=== PATIENT | female | born 1980 | race Hispanic/Latino ===

== ENCOUNTER 2017-11-24 14:42 | Emergency (ER) | payer SELFPAY ==
[~2017-11-24 14:42] MED LIST: ACET1TAB12 PO; PREN-64 PO
[2017-11-24 15:54] LABS: BASOPHILS % (AUTO) 0.9 % (0.0-5.0); EOSINOPHILS % (AUTO) 1.2 % (0.0-8.0); HEMATOCRIT 39.5 % (36-48); LYMPHOCYTES % (AUTO) 31.1 % (21.0-51.0); MEAN CORPUSCULAR HEMOGLOBIN 27.8 pg (27.0-33.0); MEAN CORPUSCULAR HGB CONC 33.9 g/dL (32.0-36.0); MEAN CORPUSCULAR VOLUME 82.1 fL (79-99); MONOCYTES % (AUTO) 5.8 % (3.0-13.0); PLATELET COUNT (AUTO) 255 K/uL (130-400); RED BLOOD CELL COUNT(AUTO) 4.81 MIL/uL (4.00-5.50); RED CELL DISTRIBUTION WIDTH 14.1 % (11.0-15.5); WHITE BLOOD COUNT (AUTO) 8.7 K/uL (4.8-10.8)
[2017-11-24 16:01] LABS: APPEARANCE,URINE Clear (CLEAR); BILIRUBIN,URINE Negative (NEGATIVE); COLOR,URINE Yellow (YELLOW); GLUCOSE, URINE (UA) TRACE mg/dL (NEGATIVE); KETONES,URINE Negative (NEGATIVE); LEUKOCYTE ESTERASE ,URINE Negative (NEGATIVE); NITRATE,URINE Negative (NEGATIVE); OCCULT BLOOD,URINE Moderate (NEGATIVE); PROTEIN,URINE Negative (NEGATIVE)
[2017-11-24 16:02] LABS: CREATININE 0.6 mg/dL (0.5-1.5); POTASSIUM 3.9 mmol/L (3.5-5.1)
[2017-11-24 16:12] LABS: HCG,QUAL RESULT NEGATIVE (NEGATIVE)
[2017-11-24 16:19] LABS: BACTERIA,URINE Few /HPF (None Seen); WBC,URINE 0-1 /HPF (0-1)
[2017-11-24 16:20] LABS: SQUAMOUS EPITHELIAL CELL,UR 0-2 /LPF (0-2)
[2017-11-24 16:21] LABS: RAPID GROUP A STREP NEGATIVE (NEGATIVE)
[2017-11-24] MEDS ORDERED: KETOROLAC TROMETHAMINE 30MG/ML ONE (16:24)
[2017-11-24] MEDS ORDERED: ACETAMINOPHEN 325 MG TAB ONE (16:30)
[2017-11-24] MEDS ORDERED: SODIUM CHLORIDE 0.9% 1000ML 1,000 ML IV ONE (16:30)
== END 2017-11-24 17:21 | disposition home or self-care (01) ==
LOC: EDH 14:42
DX: J10.1 Influenza due to other identified influenza virus with other respiratory manifestations (principal); R51 Headache; E11.9 Type 2 diabetes mellitus without complications; I10 Essential (primary) hypertension
CPT/HCPCS: 36415; 80048; 81001; 81025; 85025; 87804 ×2; 87880; 96361; 96374; 99285; J1885; J7030

== ENCOUNTER 2018-04-02 20:21 | Emergency (ER) | payer OTHER ==
[2018-04-02 20:58] LABS: APPEARANCE,URINE Clear (CLEAR); BILIRUBIN,URINE Negative (NEGATIVE); COLOR,URINE Yellow (YELLOW); GLUCOSE, URINE (UA) >=1000 mg/dL (NEGATIVE); KETONES,URINE Negative (NEGATIVE); LEUKOCYTE ESTERASE ,URINE Negative (NEGATIVE); NITRATE,URINE Negative (NEGATIVE); OCCULT BLOOD,URINE Negative (NEGATIVE); PROTEIN,URINE Negative (NEGATIVE)
[2018-04-02 21:08] LABS: BACTERIA,URINE Few /HPF (None Seen); RBC,URINE None Seen /HPF (0-1); WBC,URINE None Seen /HPF (0-1)
[2018-04-02] MEDS ORDERED: DiphenhydrAMINE HCL 50 MG/ML VIAL ONE (21:17)
[2018-04-02] MEDS ORDERED: METOCLOPRAMIDE 10 MG/2 ML VIAL ONE (21:18)
[2018-04-02] MEDS ORDERED: ONDANSETRON HCL 4 MG/2 ML VIAL ONE (21:18)
[2018-04-02] MEDS ORDERED: KETOROLAC TROMETHAMINE 15MG/ML ONE (21:19)
[2018-04-02 21:21] LABS: BASOPHILS % (AUTO) 0.3 % (0.0-5.0); EOSINOPHILS % (AUTO) 2.1 % (0.0-8.0); HEMATOCRIT 40.9 % (36-48); LYMPHOCYTES % (AUTO) 27.8 % (21.0-51.0); MEAN CORPUSCULAR HEMOGLOBIN 28.7 pg (27.0-33.0); MEAN CORPUSCULAR HGB CONC 34.3 g/dL (32.0-36.0); MEAN CORPUSCULAR VOLUME 83.6 fL (79-99); NEUTROPHILS % (AUTO) 65.8 % (40.0-77.0); NUCLEATED RED BLOOD CELLS 0.2 % (0.0-0.19); PLATELET COUNT (AUTO) 276 K/uL (130-400); RED BLOOD CELL COUNT(AUTO) 4.89 MIL/uL (4.00-5.50); RED CELL DISTRIBUTION WIDTH 13.4 % (11.0-15.5); WHITE BLOOD COUNT (AUTO) 12.6 K/uL (4.8-10.8)
[2018-04-02 21:29] LABS: CREATININE 0.7 mg/dL (0.5-1.5); POTASSIUM 4.1 mmol/L (3.5-5.1)
[2018-04-02 21:34] LABS: ALBUMIN 3.2 g/dL (3.5-5.0); BILIRUBIN,TOTAL 0.4 mg/dL (0.2-1.0); TOTAL PROTEIN, SERUM 7.9 g/dL (6.0-8.3)
[2018-04-02] MEDS ORDERED: TRAMADOL HCL 50 MG TABLET ONE (23:03)
== END 2018-04-02 23:18 | disposition home or self-care (01) ==
LOC: EDH 20:21
DX: E11.65 Type 2 diabetes mellitus with hyperglycemia (principal); R51 Headache; I10 Essential (primary) hypertension; Z79.4 Long term (current) use of insulin; Z87.891 Personal history of nicotine dependence
CPT/HCPCS: 36415; 80053; 81001; 82948; 85025; 93005; 96374; 96375; 99291; J1200; J1885; J2405; J2765

== ENCOUNTER 2018-10-31 14:20 | Emergency (ER) | payer OTHER ==
[2018-10-31] MEDS ORDERED: DIAZEPAM 5 MG TABLET ONE (14:41)
[2018-10-31] MEDS ORDERED: IBUPROFEN 600 MG TABLET ONE (14:41)
== END 2018-10-31 15:55 | disposition home or self-care (01) ==
LOC: EDH 14:20
DX: S16.1XXA Strain of muscle, fascia and tendon at neck level, initial encounter (principal); S39.012A Strain of muscle, fascia and tendon of lower back, initial encounter; I10 Essential (primary) hypertension; E11.9 Type 2 diabetes mellitus without complications; E78.00 Pure hypercholesterolemia, unspecified; Z98.890 Other specified postprocedural states; Z79.4 Long term (current) use of insulin; V59.49XA Driver of pick-up truck or van injured in collision with other motor vehicles in traffic accident, initial encounter; Y93.89 Activity, other specified; Y92.410 Unspecified street and highway as the place of occurrence of the external cause; Y99.8 Other external cause status

== ENCOUNTER 2019-01-01 14:21 | Emergency (ER) | payer OTHER ==
[2019-01-01] MEDS ORDERED: ONDANSETRON HCL 4 MG/2 ML VIAL ONE (15:03)
[2019-01-01 15:09] LABS: BASOPHILS % (AUTO) 1.1 % (0.0-5.0); EOSINOPHILS % (AUTO) 1.1 % (0.0-8.0); LYMPHOCYTES % (AUTO) 27.9 % (21.0-51.0); MEAN CORPUSCULAR HEMOGLOBIN 28.3 pg (27.0-33.0); MEAN CORPUSCULAR HGB CONC 33.5 g/dL (32.0-36.0); MEAN CORPUSCULAR VOLUME 84.5 fL (79-99); MONOCYTES % (AUTO) 3.7 % (3.0-13.0); NEUTROPHILS % (AUTO) 66.2 % (40.0-77.0); PLATELET COUNT (AUTO) 239 K/uL (130-400); RED BLOOD CELL COUNT(AUTO) 5.21 MIL/uL (4.00-5.50); WHITE BLOOD COUNT (AUTO) 10.9 K/uL (4.8-10.8)
[2019-01-01 15:15] LABS: HCG,QUAL RESULT NEGATIVE (NEGATIVE)
[2019-01-01 15:16] LABS: APPEARANCE,URINE Clear (CLEAR); BILIRUBIN,URINE Negative (NEGATIVE); COLOR,URINE Yellow (YELLOW); GLUCOSE, URINE (UA) >=1000 mg/dL (NEGATIVE); KETONES,URINE Negative (NEGATIVE); LEUKOCYTE ESTERASE ,URINE Negative (NEGATIVE); NITRATE,URINE Negative (NEGATIVE); OCCULT BLOOD,URINE Negative (NEGATIVE); PH,URINE 5.5 (5.0-8.0); PROTEIN,URINE Negative (NEGATIVE); UROBILINOGEN,URINE 0.2 mg/dL (0.2-1.0)
[2019-01-01 15:20] LABS: CREATININE 0.7 mg/dL (0.5-1.5); POTASSIUM 4.2 mmol/L (3.5-5.1)
[2019-01-01 15:39] LABS: BACTERIA,URINE Rare /HPF (None Seen); RBC,URINE None Seen /HPF (0-1); WBC,URINE None Seen /HPF (0-1)
== END 2019-01-01 16:30 | disposition home or self-care (01) ==
LOC: EDH 14:21
DX: K52.9 Noninfective gastroenteritis and colitis, unspecified (principal); E11.9 Type 2 diabetes mellitus without complications; E78.00 Pure hypercholesterolemia, unspecified; I10 Essential (primary) hypertension; Z87.891 Personal history of nicotine dependence
CPT/HCPCS: 36415; 80048; 81001; 81025; 85025; 87804 ×2; 96361; 96374; 99283; J2405

== ENCOUNTER 2019-07-11 16:42 | Emergency (ER) | payer SELFPAY ==
[2019-07-11] MEDS ORDERED: FAMOTIDINE 20MG TAB 20 MG TAB ONE (16:52)
[2019-07-11] MEDS ORDERED: DIPHENHYDRAMINE HCL 25 MG CAPSULE ONE (16:52)
[2019-07-11] MEDS ORDERED: DEXAMETHASONE SOD PHOSPHATE 10MG/ML 1ML VIAL ONE (16:52)
== END 2019-07-11 17:39 | disposition home or self-care (01) ==
LOC: EDH 16:42
DX: T78.3XXA Angioneurotic edema, initial encounter (principal); E78.00 Pure hypercholesterolemia, unspecified; I10 Essential (primary) hypertension; E11.9 Type 2 diabetes mellitus without complications
CPT/HCPCS: 96372; 99283; J1100; Q0163

== ENCOUNTER 2023-01-11 18:58 | Emergency (ER) | payer OTHER ==
[~2023-01-11] VITALS: Ht 157.5 cm; Wt 154.7 kg
[2023-01-11 20:31] LABS: BASOPHILS % (AUTO) 0.7 % (0.0-5.0); EOSINOPHILS % (AUTO) 0.8 % (0.0-8.0); HEMATOCRIT 47.8 % (36-48); LYMPHOCYTES % (AUTO) 30.6 % (21.0-51.0); MEAN CORPUSCULAR HGB CONC 31.6 g/dL (32.0-36.0); MEAN CORPUSCULAR VOLUME 85.5 fL (79-99); MONOCYTES % (AUTO) 3.5 % (3.0-13.0); NEUTROPHILS % (AUTO) 63.3 % (40.0-77.0); PLATELET COUNT (AUTO) 304 K/uL (130-400); RED BLOOD CELL COUNT(AUTO) 5.59 MIL/uL (4.00-5.50); RED CELL DISTRIBUTION WIDTH 13.3 % (11.0-15.5); WHITE BLOOD COUNT (AUTO) 11.8 K/uL (4.8-10.8)
[2023-01-11 20:33] LABS: APPEARANCE,URINE CLEAR (CLEAR); BILIRUBIN,URINE NEGATIVE (NEGATIVE); COLOR,URINE LIGHT-YELLOW (YELLOW); GLUCOSE, URINE (UA) >=1000 mg/dL (NEGATIVE); KETONES,URINE NEGATIVE (NEGATIVE); LEUKOCYTE ESTERASE ,URINE NEGATIVE Leu/uL (NEGATIVE); NITRATE,URINE NEGATIVE (NEGATIVE); OCCULT BLOOD,URINE NEGATIVE (NEGATIVE); PROTEIN,URINE NEGATIVE (NEGATIVE); UROBILINOGEN,URINE 0.2 mg/dL (0.2-1.0)
[2023-01-11 20:47] LABS: RBC,URINE 0-1 /HPF (0-1); SQUAMOUS EPITHELIAL CELL,UR RARE /HPF (0-2)
[2023-01-11 21:08] LABS: CREATININE 0.6 mg/dL (0.5-1.5); POTASSIUM 3.5 mmol/L (3.5-5.1)
[2023-01-11 21:13] LABS: ALBUMIN 3.4 g/dL (3.5-5.0); TOTAL PROTEIN, SERUM 8.1 g/dL (6.0-8.3)
[2023-01-11] MEDS ORDERED: LIDOCAINE HCL 2% VISCOUS 15 ML UDCUP PO ONE (23:30)
[2023-01-11] MEDS ORDERED: DICYCLOMINE HCL 10 MG/5 ML ML PO ONE (23:30)
[2023-01-11] MEDS ORDERED: MAG/ALUM/SIMETH 30 ML UDCUP PO ONE (23:30)
[2023-01-12] MEDS ORDERED: OMEP20TA2 PO (00:26)
[2023-01-12] MEDS ORDERED: DICY20TA2 PO (00:26)
[2023-01-12 00:45] VITALS: BP 149/92
== END 2023-01-12 00:45 | disposition home or self-care (01) ==
LOC: EDH 18:58
DX: R10.9 Unspecified abdominal pain (principal); R10.13 Epigastric pain; I10 Essential (primary) hypertension; E11.9 Type 2 diabetes mellitus without complications; E78.00 Pure hypercholesterolemia, unspecified; K21.9 Gastro-esophageal reflux disease without esophagitis; Z20.822 Contact with and (suspected) exposure to COVID-19; Z79.899 Other long term (current) drug therapy; Z88.0 Allergy status to penicillin
CPT/HCPCS: 99285; 74176; 87635; 84484; 80053; 83690; 85025; 87804 ×2; 81001; 81025; 36415; 93005; C9803

== ENCOUNTER 2023-10-03 21:32 | Emergency (ER) | payer OTHER, SELFPAY ==
[~2023-10-03] VITALS: Ht 157.5 cm; Wt 152.0 kg
[~2023-10-03 21:32] MED LIST changes: -ACET1TAB12 PO; +ATOR10 PO; +INSU100C6 SQ; +LIRA0.6P SQ; +LOSA50TA64 PO; +OXYB5TAB20 PO; -PREN-64 PO; +SITA1TAB6 PO
[2023-10-03 23:19] LABS: APPEARANCE,URINE CLEAR (CLEAR); BILIRUBIN,URINE NEGATIVE (NEGATIVE); COLOR,URINE YELLOW (YELLOW); GLUCOSE, URINE (UA) >=1000 mg/dL (NEGATIVE); KETONES,URINE NEGATIVE (NEGATIVE); LEUKOCYTE ESTERASE ,URINE NEGATIVE Leu/uL (NEGATIVE); NITRATE,URINE NEGATIVE (NEGATIVE); OCCULT BLOOD,URINE MODERATE (NEGATIVE); PROTEIN,URINE NEGATIVE (NEGATIVE); UROBILINOGEN,URINE 0.2 mg/dL (0.2-1.0)
[2023-10-03 23:21] LABS: ADD UA MICROSCOPIC YES
[2023-10-03 23:27] LABS: MUCUS,URINE RARE LPF (None Seen); SQUAMOUS EPITHELIAL CELL,UR RARE /HPF (0-2)
[2023-10-03 23:49] VITALS: BP 154/76; PULSE 84; RESP 18; O2SAT 98
[2023-10-04] MEDS ORDERED: FLUCONAZOLE 100 MG TAB ONE (00:17)
[2023-10-04] MEDS ORDERED: PHENAZOPYRIDINE HCL 200 MG TABLET PO ONE (00:30)
[2023-10-04] MEDS ORDERED: KETOROLAC 60 MG VIAL (30MG/ML) IM ONE (00:30)
[2023-10-04] MEDS ORDERED: PHEN-847 PO (00:43)
[2023-10-04] MEDS ORDERED: FLUCONAZOLE 100 MG TAB PO SCH (09:00)
== END 2023-10-04 00:56 | disposition home or self-care (01) ==
LOC: EDH 21:32
DX: N30.90 Cystitis, unspecified without hematuria (principal); E66.01 Morbid (severe) obesity due to excess calories; B35.4 Tinea corporis; I10 Essential (primary) hypertension; E11.9 Type 2 diabetes mellitus without complications; E78.00 Pure hypercholesterolemia, unspecified; F17.200 Nicotine dependence, unspecified, uncomplicated; Z79.899 Other long term (current) drug therapy; Z98.890 Other specified postprocedural states
CPT/HCPCS: 99284; 81001; 96372; J1885 ×2

== ENCOUNTER 2025-03-21 22:34 | Emergency (ER) | payer BC ==
[~2025-03-21] VITALS: Ht 162.6 cm; Wt 143.8 kg
[~2025-03-21 22:34] MED LIST changes: +CLIN-141 PO; +DICL20GE TP; +PHEN-847 PO
[2025-03-21] MEDS: metoCLOPRAmide 10 MG/2 ML VIAL IVP ONE (23:09)
[2025-03-21] MEDS: 0.9%NACL 1000ML 1,000 ML IV ONE (23:09)
[2025-03-21 23:10] LABS: BASOPHILS # (AUTO) 0.12 K/uL (0.00-0.20); EOSINOPHILS # (AUTO) 0.14 K/uL (0.00-0.70); EOSINOPHILS % (AUTO) 1.1 % (0.0-8.0); LYMPHOCYTES # (AUTO) 3.7 K/uL (1.0-4.8); LYMPHOCYTES % (AUTO) 29.4 % (21.0-51.0); MEAN CORPUSCULAR HEMOGLOBIN 29.2 pg (27.0-33.0); MEAN CORPUSCULAR HGB CONC 33.3 g/dL (32.0-36.0); MEAN CORPUSCULAR VOLUME 87.8 fL (79-99); MONOCYTES # (AUTO) 0.6 K/uL (0.1-1.0); MONOCYTES % (AUTO) 5.1 % (3.0-13.0); NEUTROPHILS # (AUTO) 7.8 K/uL (1.8-7.7); NEUTROPHILS % (AUTO) 62.6 % (40.0-77.0); PLATELET COUNT (AUTO) 255 K/uL (130-400); RED CELL DISTRIBUTION WIDTH 12.3 % (11.0-15.5); WHITE BLOOD COUNT (AUTO) 12.4 K/uL (4.8-10.8)
[2025-03-21 23:13] VITALS: BP 158/63; PULSE 97; RESP 18; TEMP 98.8; O2SAT 98
[2025-03-21 23:21] LABS: CREATININE 0.6 mg/dL (0.5-1.0); POTASSIUM 4.4 mmol/L (3.5-5.1)
[2025-03-21 23:54] LABS: APPEARANCE,URINE CLEAR (CLEAR); BACTERIA,URINE RARE /HPF (None Seen); BILIRUBIN,URINE NEGATIVE (NEGATIVE); COLOR,URINE LIGHT-YELLOW (YELLOW); GLUCOSE, URINE (UA) >=1000 mg/dL (NEGATIVE); KETONES,URINE NEGATIVE (NEGATIVE); LEUKOCYTE ESTERASE ,URINE NEGATIVE Leu/uL (NEGATIVE); MUCUS,URINE RARE LPF (None Seen); NITRATE,URINE NEGATIVE (NEGATIVE); OCCULT BLOOD,URINE NEGATIVE (NEGATIVE); PH,URINE 6.5 (5.0-8.0); PROTEIN,URINE NEGATIVE (NEGATIVE); SQUAMOUS EPITHELIAL CELL,UR RARE /HPF (0-2); UROBILINOGEN,URINE 0.2 mg/dL (0.2-1.0); WBC,URINE 0-1 /HPF (0-1); YEAST,URINE BUDDING RARE /HPF (None Seen)
[2025-03-21 23:55] LABS: HCG,QUALITATIVE URINE NEGATIVE (NEGATIVE)
--- NOTE | 2025-03-22 01:01 | HMCIMG ---
CT HEAD/BRAIN W/O CONTRAST HISTORY: Headache COMPARISON: None TECHNIQUE: Multiple sequential axial images of the head were obtained from the base of the skull through vertex. Patient was not given contrast through intravenous route. FINDINGS: The ventricles and extraventricular CSF spaces are nondilated for patient's age. There is no midline shift, mass effect or herniation. No acute intracranial bleed is seen. Visualized portion of the paranasal sinuses are grossly within normal limits. IMPRESSION: 1. No acute intracranial bleed is seen. CT was performed with one or more following dose reduction techniques: automated exposure control, adjustment of the mA and kv according to patient's size, or use of a iterative reconstruction technique.
--- NOTE | 2025-03-22 01:10 | ERN ---
General Chief Complaint: Headache Stated Complaint: C/O HEADACHE X 2 DAYS Time Seen by MD: 22:38 Time Seen by Midlevel: 22:38 Source: patient History of Present Illness Initial Comments 44-year-old female who presents to the emergency department with a headache ongoing for two days. Patient reports nausea, light sensitivity, tingling sensation to the face bilaterally but denies any vomiting, chest pain, shortness of breath, vision disturbance or further associated symptoms. Patient denies any head injuries, LOC, or abnormal behavior. Denies significant past medical history. Allergies: Coded Allergies: No Known Drug Allergies (Unverified Allergy, Unknown, 10/26/16) Penicillins (Unverified Allergy, Unknown, SWELLING, 11/03/16) REACTION OCCURRED A CHILD Home Meds Active Scripts Diclofenac Sodium (Voltaren Arthritis Pain) 1 % Gel..gram., 20 GM TP BID for 7 Days, #30 TUBE Prov:ARLINE RHODES MD 03/06/24 Clindamycin HCl (Clindamycin HCl) 300 Mg Capsule, 300 MG PO q6 for 7 Days, #28 CAP Prov:ARLINE RHODES MD 03/06/24 Phenazopyridine HCl (Pyridium) 200 Mg Tab, 200 MG PO TIDPC, #5 TAB 0 Refills TAKE WITH FOOD TO PREVENT STOMACH UPSET. Prov:VARGHESE MARTIN Sr., MD 10/04/23 Reported Medications Oxybutynin Chloride (Oxybutynin Chloride) 5 Mg Tablet, 5 MG PO TID, TAB 03/26/23 Liraglutide (Victoza 2-Juan F) 0.6 Mg/0.1 Ml Pen.injctr, 1.2 MG SQ AM 03/26/23 Insulin Aspart (Novolog) 100 Unit/1 Ml Cartridge, 40 UNITS SQ PM, CARTRIDGE 03/26/23 Insulin Aspart (Novolog) 100 Unit/1 Ml Cartridge, 60 UNIT SQ AM, CARTRIDGE 03/26/23 Sitagliptin Phos/Metformin HCl (Janumet 50-1,000 mg Tablet) 1 Each Tablet, 1 EACH PO BID, TAB 03/26/23 Losartan Potassium (Losartan Potassium) 50 Mg Tablet, 50 MG PO DAILY, TAB 03/26/23 Atorvastatin Calcium (LIPITOR) 20 Mg Tab, 20 MG PO HS, TAB 03/26/23 Past Medical History Past Medical History: Diabetes-Type II, High Cholesterol, Hypertension Past Surgical History: Family History Family History: CAD, DM, HTN Social History Social History: Smokers Female( History) History: Not Applicable LMP: Mar 07, 2025 ROS Dictation Constitutional: Negative for fever,chills, and weight loss Eyes: Positive for light sensitivity Negative for injury, pain,redness, and discharge ENT: Negative for injury,pain or swelling Cardiovascular: Negative for chest pain, palpitations, and edema Respiratory: Negative for shortness of breath, cough, and wheezing, Abdomen/GI: Positive for nausea Negative for abdominal pain, vomiting, diarrhea, and constipation Back: Negative for injury and pain : Negative for painful urination, bleeding or discharge MS/Extremity: Negative for injury and deformity Skin: Negative for rash, and discoloration Neuro: Positive for headache Negative for weakness, numbness, tingling, and seizure Psych: Negative for suicide ideation, homicidal ideation, and hallucinations Physical Exam Physical Exam Dictation General: awake, alert, no acute distress Head/Face: Normocephalic, atraumatic Eyes: PERRL, EOMI, normal conjunctiva ENT: oral cavity clear, oral mucosa moist Neck: Supple, normal range of motion Cardiovascular: RRR, normal S1/S2 Respiratory: CTAB, no respiratory distress Skin: Warm, dry, normal turgor, no rash MS/Extremity: Pulses equal, no cyanosis, neurovascular intact, FROM Neuro: COAx4, GCS 15, strength 5/5, CN 2-12 intact, normal cerebellar exam, normal gait Psych: Normal behavior, mood, and affect normal Results Laboratory and Microbiology Lab and Micro Result Laboratory Tests Test 03/21/25 23:03 03/21/25 23:30 White Blood Count 12.4 K/uL (4.8-10.8) H Red Blood Count 4.90 MIL/uL (4.00-5.50) Hemoglobin 14.3 g/dL (12.0-16.0) Hematocrit 43.0 % (36-48) Mean Corpuscular Volume 87.8 fL (79-99) Mean Corpuscular Hemoglobin 29.2 pg (27.0-33.0) Mean Corpuscular Hemoglobin Concent 33.3 g/dL (32.0-36.0) Red Cell Distribution Width 12.3 % (11.0-15.5) Platelet Count 255 K/uL (130-400) Mean Platelet Volume 11.6 fL (7.5-10.5) H Immature Granulocyte % (Auto) 0.8 % (0-1) Neutrophils (%) (Auto) 62.6 % (40.0-77.0) Lymphocytes (%) (Auto) 29.4 % (21.0-51.0) Monocytes (%) (Auto) 5.1 % (3.0-13.0) Eosinophils (%) (Auto) 1.1 % (0.0-8.0) Basophils (%) (Auto) 1.0 % (0.0-5.0) Neutrophils # (Auto) 7.8 K/uL (1.8-7.7) H Lymphocytes # (Auto) 3.7 K/uL (1.0-4.8) Monocytes # (Auto) 0.6 K/uL (0.1-1.0) Eosinophils # (Auto) 0.14 K/uL (0.00-0.70) Basophils # (Auto) 0.12 K/uL (0.00-0.20) Absolute Immature Granulocyte (auto 0.10 K/uL (0-1) Nucleated Red Blood Cells 0.0 % (0.0-0.19) Sodium Level 135 mmol/L (136-145) L Potassium Level 4.4 mmol/L (3.5-5.1) Chloride Level 98 mmol/L (101-111) L Carbon Dioxide Level 29 mmol/L (21-32) Blood Urea Nitrogen 13 mg/dL (7-18) Creatinine 0.6 mg/dL (0.5-1.0) Glomerular Filtration Rate Calc 115 mL/min (>90) Random Glucose 313 mg/dL (70-105) H Total Calcium 9.1 mg/dL (8.5-10.1) Urine Color LIGHT-YELLOW (YELLOW) Urine Appearance CLEAR (CLEAR) Urine pH 6.5 (5.0-8.0) Urine Specific [place] 1.028 (1.001-1.031) Urine Protein NEGATIVE mg/dL (NEGATIVE) Urine Glucose (UA) >=1000 mg/dL (NEGATIVE) H Urine Ketones NEGATIVE mg/dL (NEGATIVE) Urine Occult Blood NEGATIVE (NEGATIVE) Urine Nitrate NEGATIVE (NEGATIVE) Urine Bilirubin NEGATIVE mg/dL (NEGATIVE) Urine Urobilinogen 0.2 mg/dL (0.2-1.0) Urine Leukocyte Esterase NEGATIVE Pamela/uL Urine RBC 2-5 /HPF (0-1) H Urine WBC 0-1 /HPF (0-1) Urine Squamous Epithelial Cells RARE /HPF (0-2) Urine Bacteria RARE /HPF (None Seen) Urine Yeast RARE /HPF (None Seen) Urine HCG, Qualitative NEGATIVE (NEGATIVE) Labs Reviewed?: Yes EKG/XRAY/US/CT/MRI CT Scan Comment REASON: Headache ORDERING PHYSICIAN: CORINNE VELARDE PROCEDURE: HEAD WO - CT HEAD/BRAIN W/O CONTRAST CT HEAD/BRAIN W/O CONTRAST HISTORY: Headache COMPARISON: None TECHNIQUE: Multiple sequential axial images of the head were obtained from the base of the skull through vertex. Patient was not given contrast through intravenous route. FINDINGS: The ventricles and extraventricular CSF spaces are nondilated for patient's age. There is no midline shift, mass effect or herniation. No acute intracranial bleed is seen. Visualized portion of the paranasal sinuses are grossly within normal limits. IMPRESSION: 1. No acute intracranial bleed is seen. CT was performed with one or more following dose reduction techniques: automated exposure control, adjustment of the mA and kv according to patient's size, or use of a iterative reconstruction technique. DICTATED BY: JOHANA BROOKS MD DATE: 03/22/25 005 [facility] MDM: Differential diagnosis: Migraine, cluster headache, tension headache Rationale: 44-year-old female who presents to the emergency department with a headache ongoing for two days. Patient reports nausea, light sensitivity, tingling sensation to the face bilaterally but denies any vomiting, chest pain, shortness of breath, vision disturbance or further associated symptoms. Patient denies any head injuries, LOC, or abnormal behavior. Denies significant past medical history. Per physical examination patient is in no acute distress, neurologically intact, awake alert and oriented x4. Labs obtained show mild WBC elevation of 12.4, hyponatremia 135, hypochloremia 98, glucose 313. UA negative for urinary tract infection. Head CT obtained shows no acute intracranial bleeds or acute abnormalities. Patient was administered IV fluids, Reglan, ketorolac. Patient was educated on findings and diagnosis. Advised to follow up with PCP. Return to the emergency department if any worsening symptoms. Patient verbalized understanding. Patient stable for discharge. There are no social concerns with this patient. I independently interpreted the test that were performed, results were reviewed by me and considered findings on radiology if ordered. Medical management and examination interpretation discussions were had by me with other qualified healthcare professionals as indicated for the patient's care. ED Course Orders Procedure Category Date Status Time Cbc With Differential LAB 03/21/25 Complete 22:56 Basic Metabolic Panel LAB 03/21/25 Complete 22:56 Urinalysis LAB 03/21/25 Complete W/Microscopic 22:56 ,Urine Test LAB 03/21/25 Complete 22:56 0.9%Nacl 1000ml (Ns PHA 03/21/25 Complete 1000ml) 23:00 Metoclopramide 10 PHA 03/21/25 Complete Mg/2 Ml Vial (Reglan 1 23:00 Ct Head/Brain W/O CT 03/21/25 Resulted Contrast 22:56 Ketorolac PHA 03/22/25 Complete Tromethamine 15mg/Ml 01:30 Current Medications Medications (Trade) Dose Ordered Sig/Go Route PRN Reason Start Time Stop Time Status Last Admin Dose Admin Ketorolac Tromethamine (toRADol) 15 mg ONCE ONCE IV 03/22/25 01:30 03/22/25 01:31 DC 03/22/25 01:44 Metoclopramide HCl (regLAN 10MG IV) 10 mg ONCE ONCE IVP 03/21/25 23:00 03/21/25 23:02 DC 03/21/25 23:09 Sodium Chloride 1,000 ml @ 0 mls/hr ONCE ONCE IV 03/21/25 23:00 03/21/25 23:02 DC 03/21/25 23:09 Vital Signs Date Time Temp Pulse Resp B/P (MAP) Pulse Ox O2 Delivery O2 Flow Rate FiO2 03/21/25 23:13 98.8 97 18 158/63 98 Room Air* 0 21 03/21/25 22:36 99.3 105 20 157/80 97 Room Air DX & DISP Disposition: Discharge Departure Impression: Primary Impression: Headache Condition: Stable Additional Instructions: Discharge home. Rest. Follow up with primary care DrDeepak in 24 hours. Return to the ER for any acute changes or worsening symptoms. If any medications were prescribed take as directed. Okay to continue home medications unless otherwise discussed during your visit in the emergency room today. Patient was also advised to follow-up with primary care physician in 1 to 2 days for continued monitoring. Referrals: SELF,REFERRAL (PCP) I performed the substantive portion of the visit. I have reviewed and personally made and approve the management plan that is documented in the notes by myself or the [facility]. I acknowledge full responsibility for the patient's management plan. CORINNE VELARDE Mar 22, 2025 01:10
[2025-03-22] MEDS: ketOROlac 15MG/ML VIAL (15MG/ML) IV ONE (01:44)
== END 2025-03-22 01:50 | disposition home or self-care (01) ==
LOC: EDH 22:34
DX: R51.9 Headache, unspecified (principal); E11.9 Type 2 diabetes mellitus without complications; E78.00 Pure hypercholesterolemia, unspecified; I10 Essential (primary) hypertension; F17.200 Nicotine dependence, unspecified, uncomplicated; Z79.1 Long term (current) use of non-steroidal anti-inflammatories (NSAID); Z79.84 Long term (current) use of oral hypoglycemic drugs; Z79.899 Other long term (current) drug therapy; Z88.0 Allergy status to penicillin
CPT/HCPCS: 99284; 96374; 70450; 80048; 85025; 81001; 81025; 36415; 96375; J2765; J1885